=== PATIENT | female | born 1980 | race Two or more races ===

== ENCOUNTER 2020-04-09 06:42 | Emergency (ER) | payer OTHER ==
[~2020-04-09] VITALS: Ht 167.6 cm; Wt 54.4 kg
[2020-04-09] MEDS ORDERED: TAMS0.4C PO (12:07)
[2020-04-09] MEDS ORDERED: KETO10TA2 PO (12:07)
[2020-04-09] MEDS ORDERED: ULTRAM50 MG PO (12:07)
[2020-04-09] MEDS ORDERED: PYRIDIUM DS200 MG PO (12:07)
== END 2020-04-09 12:43 | disposition home or self-care (01) ==
LOC: ER 06:42
DX: N20.2 Calculus of kidney with calculus of ureter (principal)

== ENCOUNTER 2023-08-19 13:17 | Outpatient (CLI) | payer OTHER ==
[~2023-08-19 13:17] MED LIST: KETO10TA2 PO; PYRIDIUM DS200 MG PO; TAMS0.4C PO; ULTRAM50 MG PO
== END 2023-08-19 13:33 | disposition home or self-care (01) ==
LOC: SONOGRAMA 13:17
DX: R80.9 Proteinuria, unspecified (principal)

== ENCOUNTER 2025-10-06 10:34 | Outpatient (CLI) | payer OTHER | END 2025-10-06 10:42 | disposition home or self-care (01) | LOC: MAMO-SONO 10:34 | PROVIDERS: ATTEND Obstetrics & Gynecology | DX: N60.19 Diffuse cystic mastopathy of unspecified breast (principal); N63.0 Unspecified lump in unspecified breast; N64.4 Mastodynia; R92.1 Mammographic calcification found on diagnostic imaging of breast; R92.0 Mammographic microcalcification found on diagnostic imaging of breast; R10.20 Pelvic and perineal pain unspecified side ==